=== PATIENT | female | born 1975 | race Caucasian/White ===

== ENCOUNTER 2024-01-16 06:55 | Day surgery (SDC) | payer MEDICAID, OTHER ==
[~2024-01-16] VITALS: Ht 162.6 cm; Wt 58.1 kg
== END 2024-01-16 07:20 | disposition home or self-care (01) ==
LOC: MDS 06:55 → MMU 07:02 → MDS 07:20
PROVIDERS: ATTEND Internal Medicine Gastroenterology
DX: Z12.11 Encounter for screening for malignant neoplasm of colon (principal)